=== PATIENT | male | born 1985 | race African-American/Black ===

== ENCOUNTER 2017-01-21 05:13 | Emergency (ER) | payer OTHER ==
[~2017-01-21] VITALS: Ht 177.8 cm; Wt 81.0 kg
[2017-01-21] MEDS ORDERED: KETOROLAC 30MG/ML VIAL IV ONE (08:00)
[2017-01-21 08:30] VITALS: BP 125/64
== END 2017-01-21 08:46 | disposition home or self-care (01) ==
LOC: ER 05:13
DX: R07.89 Other chest pain (principal); F17.200 Nicotine dependence, unspecified, uncomplicated; Z88.0 Allergy status to penicillin
CPT/HCPCS: 93005; 96374; 99284; J1885; Z7610